=== PATIENT | male | born 1970 | race Caucasian/White ===

== ENCOUNTER → 2023-08-07 09:47 | Outpatient (REF) | payer OTHER, SELFPAY | LOC: RAD 09:47 | PROVIDERS: ATTENDING PHYSICIAN Podiatrist Foot Surgery; FAMILY PHYSICIAN Nurse Practitioner | DX: I73.9 Peripheral vascular disease, unspecified (principal) | CPT/HCPCS: 93922; 93925 ==

== ENCOUNTER → 2024-06-17 08:44 | Outpatient (REF) | payer OTHER, SELFPAY | LOC: HWRAD 08:44 | DX: R91.1 Solitary pulmonary nodule (principal) | CPT/HCPCS: 71250 ==

== ENCOUNTER 2025-01-13 08:37 | Outpatient (RCR) | payer OTHER, SELFPAY | END 2025-01-13 23:59 | disposition home or self-care (01) | LOC: RPT 08:37 | DX: M54.42 Lumbago with sciatica, left side (principal); M54.12 Radiculopathy, cervical region; Z73.6 Limitation of activities due to disability; M62.81 Muscle weakness (generalized); R26.2 Difficulty in walking, not elsewhere classified; R26.89 Other abnormalities of gait and mobility | CPT/HCPCS: 97110; 97140; 97163 ==

== ENCOUNTER 2025-02-03 11:31 | Outpatient (RCR) | payer OTHER, SELFPAY | END 2025-02-13 06:27 | disposition home or self-care (01) | LOC: RPT 11:31 | DX: M54.42 Lumbago with sciatica, left side (principal); M54.12 Radiculopathy, cervical region; Z73.6 Limitation of activities due to disability; M62.81 Muscle weakness (generalized); R26.2 Difficulty in walking, not elsewhere classified; R26.89 Other abnormalities of gait and mobility | CPT/HCPCS: 97110; 97140 ==